=== PATIENT | male | born 1985 | race Caucasian/White ===

== ENCOUNTER 2018-02-01 13:34 | Emergency (ER) | payer SELFPAY ==
--- NOTE | 2018-02-01 13:59 | EDPHY ---
H & P Stated Complaint: 1.5 YRS GENITAL/PELVIC PAIN/HAS HAD GONORRHEA IN PAST/YOUSIF Time Seen by Provider: 02/01/18 13:59 - Personal History Current Tetanus Diphtheria and Acellular Pertussis (TDAP): Unsure - Medical/Surgical History Hx Asthma: No Hx Chronic Respiratory Disease: No Hx Diabetes: No Hx Cardiac Disease: No Hx Renal Disease: No Hx Cirrhosis: No Hx Alcoholism: No Hx HIV/AIDS: No Hx Splenectomy or Spleen Trauma: No Other PMH: gc/PECTUS - Social History Smoking Status: Never smoked Constitutional: Initial Vital Signs Temperature (C) 36.4 C 02/01/18 13:43 Heart Rate 83 02/01/18 13:43 Respiratory Rate 17 02/01/18 13:43 Blood Pressure 123/85 H 02/01/18 13:43 O2 Sat (%) 96 02/01/18 13:43 O2 Delivery Mode Room Air Allergies/Adverse Reactions: No Known Allergies Allergy (Unverified 02/01/18 13:42) Home Medications: Medication Instructions Recorded Doxycycline Hyclate 100 mg PO BID #20 tab 02/01/18 Medical Decision Making ED Course/Re-evaluation: CHIEF COMPLAINT: Possible gonorrhea HISTORY OF PRESENT ILLNESS: This patient is a 32 year old male complaining of pelvic and penile pain. He states he thinks he has had gonorrhea for "quite some time". He has been homeless in the past and has not seen a primary care provider for his symptoms in about 1.5 years. He was treated in the past with Zithromax and doxycycline. The patient complains of fiery pain in his entire pelvic region, particularly during intercourse. Additionally he complains of stiffness in his spine and neck. He denies any rash or lesions. No fever, abdominal pain, vomiting, diarrhea, dysuria, hematuria, or other associated symptoms. REVIEW OF SYSTEMS: A 10 point review of systems was performed and is negative with the exception of the elements mentioned in the history of present illness. PHYSICAL EXAM: HR, BP, O2 Sat, RR. Temp noted General Appearance: Alert, well hydrated, appropriate, and non-toxic appearing. Head: Atraumatic without scalp tenderness or obvious injury Eyes: Pupils equal, round, reactive to light and accommodation, EOMI, no trauma , no injection. Ears: Clear bilaterally, no perforation, normal landmarks Nose: Atraumatic, no rhinorrhea, clear. Throat: There is no erythema or exudates, no lesions, normal tonsils, mucus membranes moist. Neck: Supple, 2+ carotid upstroke, nontender, no lymphadenopathy. Respiratory: No retractions, no distress, no wheezes, and no accessory muscle use. Lungs are clear to auscultation bilaterally. Cardiovascular: Regular rate and rhythm, no murmurs, rubs, or gallops. Bilateral carotid, radial, dorsalis pedis, and posterior tibial pulses intact. Good capillary refill all extremities. Gastrointestinal: Abdomen is soft, nontender, non-distended, no masses, no rebound, no guarding, no peritoneal signs. Musculoskeletal: Normal active ROM of all extremities, atraumatic. Neurological: Alert, appropriate, and interactive. The patient has normal DTRs and non-focal cranial nerves, motor, sensory, and cerebellar exam. Skin: No rashes, good turgor, no nodules on palpation. Past medical history: Gonorrhea. Past surgical history:Noncontributory. Family history: Noncontributory. Social history: Single. Lives in [place]. Employed. DIFFERENTIAL DIAGNOSIS: The differential diagnosis for the patient's genital and pelvic pain included but was not limited to sexually transmitted infection, epididymitis, hernias, testicular torsion, and urinary tract infection. MEDICAL DECISION MAKIN32 y/o male presents with pelvic and penile discomfort ongoing for several months. He requests GC/chlamydia screening. Plan for these tests as well as UA. UA negative for UTI. CG/chlamydia pending, results available tomorrow morning. Plan to treat patient's symptoms empirically with 100mg PO Doxycycline and 250mg IM Rocephin. Has had unprotected sexual intercourse and states he has had gonorrhea in the past with similar symptoms. 14:32 Reassessed patient. Discussed results so far. He will call tomorrow for results. Plan to discharge home in good condition with prescription for doxycycline. He will follow up with urology. He is comfortable with this plan. - Data Points Laboratory Results: 02/01/18 02/01/18 13:47 13:47 Urine Color PALE YELLOW Urine Appearance CLEAR Urine pH 6.0 (5.0-7.5) Ur Specific [place] 1.004 (1.002-1.030) Urine Protein NEGATIVE (NEGATIVE) Urine Ketones NEGATIVE (NEGATIVE) Urine Blood NEGATIVE (NEGATIVE) Urine Nitrate NEGATIVE (NEGATIVE) Urine Bilirubin NEGATIVE (NEGATIVE) Urine Urobilinogen NEGATIVE EU EU (0.2-1.0) Ur Leukocyte Esterase NEGATIVE (NEGATIVE) Urine RBC 1-3 /hpf /hpf (0-3) Urine WBC 1-3 /hpf /hpf (0-3) Ur Epithelial Cells NONE SEEN /lpf /lpf (NONE-1+) Urine Glucose NEGATIVE (NEGATIVE) C.trachomatis RNA (TMA) Pending N.gonorrhoeae RNA (TMA) Pending Medications Given: Discontinued Medications Ceftriaxone Sodium (Rocephin Im Syringe) 250 mg IM ONCE ONE PRN Reason: Protocol Stop: 02/01/18 14:08 Last Admin: 02/01/18 14:50 Dose: 250 mg Doxycycline Hyclate (Doxycycline Hyclate) 100 mg PO EDNOW ONE PRN Reason: Protocol Stop: 02/01/18 14:08 Last Admin: 02/01/18 15:26 Dose: 100 mg Departure - Departure Disposition: Home, Routine, Self-Care Clinical Impression: Sexually transmitted disease in male Condition: Good Instructions: Sexually Transmitted Diseases (ED) Additional Instructions: 1. Take doxycycline as prescribed. 2. Call tomorrow for results of your testing. 3. Return to the emergency department for fever, severe abdominal pain, worsening genital pain, swelling, or bleeding, or other worsening of condition or further concerns. Referrals: NONE *PRIMARY CARE P,. [Primary Care Provider] - As per Instructions Leonid Cartagena MD [Medical Doctor] - As per Instructions Prescriptions: Doxycycline Hyclate 100 mg PO BID #20 tab Report Scribed for: Campbell Rushing Report Scribed by: Maria Teresa Tavera Date of Report: 02/01/18 Time of Report: 14:04
[2018-02-01] MEDS ORDERED: DOXYCYCLINE HYCLATE 100 MG CAP/TAB PO ONE (14:07)
[2018-02-01 15:33] VITALS: BP 134/83
[2018-02-02 13:23] LABS: GC AMPLIFICATION GENPROBE NEGATIVE (NEGATIVE)
== END 2018-02-01 15:33 | disposition home or self-care (01) ==
DX: A64 Unspecified sexually transmitted disease (principal)
CPT/HCPCS: J0696

== ENCOUNTER 2018-02-09 16:44 | Emergency (ER) | payer SELFPAY ==
[2018-02-09] MEDS ORDERED: AZITHROMYCIN 250 MG TAB PO ONE (17:06)
--- NOTE | 2018-02-09 17:10 | EDPHY ---
H & P Stated Complaint: painful urination Time Seen by Provider: 02/09/18 17:07 HPI/ROS: HPI: This is a 32-year-old male who Chief Complaint: Presents with exposure to sexually transmitted infection Location: Quality: exposure to gonorrhea and chlamydia Duration: Several days Signs and Symptoms: no fever, no nausea, no vomiting, no hematemesis, no blood in stool, no abdominal bloating, no diarrhea, no back pain, no urinary symptoms , no testicular/groin pain, no indigestion, no chest pain, no shortness of breath Timing: Acute Severity: Mild Context: Patient presents with 3-4 day history burning with urination and scant yellowish discharge from the tip of his penis. Patient was seen in this emergency room on 02/01/18 with similar concerns. Urinalysis at that time was unremarkable. Patient was treated with Rocephin IM 250 mg and given a prescription for doxycycline 100 mg twice a day times 10 days. Patient reports that he only took the doxycycline for 3 days. On the 3rd day he had unprotected sexual intercourse with the same partner that he has concerns of being infected with gonorrhea and chlamydia. The patient reports that he had a week moment and understands that he needs to be treated again. He also reported that his sexual partner received treatment this week as well. He is eating and drinking normally. Denies any abdominal pain/testicular pain or swelling/fever/nausea/vomiting. He reports that he is traveling to [place] this weekend. Modifying Factors: See above Comment: ROS: see HPI Constitutional: No fever, no chills, no weight loss Eyes: No blurred vision Respiratory: No shortness of breath, no cough Cardiovascular: No chest pain, no palpitations Gastrointestinal: No nausea, no vomiting, no diarrhea, no hematemesis, no blood in stool Genitourinary: No dysuria, no blood in urine Extremities: No myalgias, no edema Neurologic: No weakness, no numbness Skin: No rashes, no petechiae Hematologic: No bruising, no bleeding MEDICAL/SURGICAL/SOCIAL HISTORY: Medical history: Generally healthy. Does not take any regular medications. Surgical history: Denies Social history: Never smoked.. Family history noncontributory. CONSTITUTIONAL: slightly anxious adult white male, awake and alert, no obvious distress HEENT: Atraumatic and normocephalic, PERRL, EOMI. Nares patent; no rhinorrhea; no nasal mucosal edema. Tympanic membranes clear. Oropharynx clear, no exudate and moist pink mucosa. Airway patent. No lymphadenopathy. No meningismus. Cardiovascular: Normal S1/S2, regular rate, regular rhythm, without murmur rub or gallop. PULMONARY/CHEST: Symmetrical and nontender. Clear to auscultation bilaterally. Good air movement. No accessory muscle usage. ABDOMEN: Soft, nondistended, nontender, no rebound, no guarding, no peritoneal signs, no masses or organomegaly. No CVAT. Male : circumcised penis, bilateral descended testes, no testicular swelling, no testicular masses, no penile discharge, no lesions, negative Prehn's sign. EXTREMITIES: 2/2 pulses, strength 5/5, no deformities, no clubbing, no cyanosis or edema. NEUROLOGICAL: no focal neuro deficits. GCS 15. SKIN: Warm and dry, no erythema. no rash. Good capillary refill. Source: Patient, Old records Exam Limitations: No limitations - Personal History Current Tetanus/Diphtheria Vaccine: Yes Current Tetanus Diphtheria and Acellular Pertussis (TDAP): Yes - Medical/Surgical History Hx Asthma: No Hx Chronic Respiratory Disease: No Hx Diabetes: No Hx Cardiac Disease: No Hx Renal Disease: No Hx Cirrhosis: No Hx Alcoholism: No Hx HIV/AIDS: No Hx Splenectomy or Spleen Trauma: No Other PMH: gc/PECTUS - Social History Smoking Status: Never smoked Constitutional: Initial Vital Signs Temperature (C) 36.7 C 02/09/18 16:48 Heart Rate 103 H 02/09/18 16:48 Respiratory Rate 16 02/09/18 16:48 Blood Pressure 132/89 H 02/09/18 16:48 O2 Sat (%) 96 02/09/18 16:48 O2 Delivery Mode Room Air Allergies/Adverse Reactions: No Known Allergies Allergy (Unverified 02/09/18 16:47) Medical Decision Making ED Course/Re-evaluation: Urinalysis, GC urine ordered Treated with IM Rocephin 250 mg and Azithromycin 1 g while in the emergency room. Long counseling session regarding safe sex practices. The abdomen is soft and nontender and I doubt a surgical process. No testicular swelling or pain and I doubt testicular torsion. This patient was seen under the supervision of my secondary supervising physician. I evaluated care for this patient independently. Discussed this patient with Dr. Means who did not see the patient. Differential Diagnosis: Differential diagnosis includes but is not limited to urinary tract infection, prostatitis, gonorrhea, chlamydia, Trichomonas, herpes simplex virus. Departure - Departure Disposition: Home, Routine, Self-Care Clinical Impression: Sexually transmitted disease exposure Condition: Good Instructions: Sexually Transmitted Diseases (ED), Safe Sex (ED), Condom Use (ED ) Additional Instructions: Please refrain from sexual intercourse x 1 week. Inform all sexual partners that you are being treated for a possible sexually transmitted disease. Do not have sexual intercourse with your exposed sexual partners until they have received treatment. Referrals: [facility] [Clinic] - As per Instructions
[2018-02-09 17:24] VITALS: BP 119/85
== END 2018-02-09 17:55 | disposition home or self-care (01) ==
DX: Z20.2 Contact with and (suspected) exposure to infections with a predominantly sexual mode of transmission (principal)
CPT/HCPCS: J0696